=== PATIENT | female | born 1975 | race Caucasian/White ===

== ENCOUNTER → 2017-10-10 | Day surgery (SDC) | payer BC ==
[2017-10-05 10:48] VITALS: BMI 33.9
[~2017-10-10] MED LIST: Bacitracin Zinc Ointment 30 gm TUBE ONE; Betamet Acet/Betamet Na Ph 30 MG/5 ML VIAL ONE; Bupivacaine PF 0.5% 30 ML VIAL ONE; CEFAZOLIN/Water 2 GM/20 ML SYRINGE ONE; Fentanyl 100 MCG/2 ML VIAL ONE; Ketorolac Tromethamine 30 MG/ML VIAL ONE; Lidocaine 1% PF 5 ML VIAL ONE; Midazolam HCl 2 mg/2 ml Vial ONE; Ondansetron HCl/PF 4 MG/2 ML Vial ONE; PROPOFOL 200 MG/20 ML VIAL ONE
[2017-10-10 15:43] LABS: #Basophils 0.1 thou/uL (0.0-0.2); #Eosinphils 0.3 thou/uL (0.0-0.7); #Lymphocytes 3.5 thou/uL (1.20-3.40); #Monocytes 0.5 thou/uL (0.11-0.59); #Neutrophils 3.3 thou/uL (1.40-6.50); %Basophils 1.5 % (0.0-1.0); %Eosinophils 3.5 % (0.0-10.0); %Lymphocytes 45.2 % (21.0-51.0); %Monocytes 6.6 % (0.0-10.0); %Neutrophils 43.3 % (42.0-75.0); Hemoglobin 14.4 g/dL (12.0-16.0); Mean Corpuscular HGB CONC 34.3 g/dL (32.0-36.0); Mean Corpuscular Hemoglobin 31.5 pg (27.0-31.0); Mean Corpuscular Volume 91.8 fL (78.0-98.0); Mean Platelet Volume 9.8 fL (7.4-10.4); Platelet Count 222 thou/uL (130-400); RBC Distribution Width 11.4 % (11.5-14.5); Red Blood Cell (RBC) Count 4.57 mill/uL (4.20-5.40); White Blood Cell (WBC) Count 7.7 thou/uL (4.8-10.8)
[2017-10-10 15:59] LABS: Anion Gap 12 mmol/L (10-20); BUN (Urea Nitrogen) 10 mg/dL (7.0-18.7); Calc. Creatinine Clearance 145 mL/min (70-130); Calcium 9.1 mg/dL (7.8-10.44); Carbon Dioxide 22 mmol/L (22-29); Chloride 104 mmol/L (98-107); Estimated GFR-MDRD 83; Glucose 97 mg/dL (70-105); Potassium 3.5 mmol/L (3.5-5.1); Sodium 134 mmol/L (136-145)
--- NOTE | 2017-10-11 04:03 | OP ---
PREOPERATIVE DIAGNOSIS: Left ring finger A1 jed triggering. POSTOPERATIVE DIAGNOSES: 1. Left ring finger A1 jed trigger. 2. Left ring finger flexor tenosynovium, probably diabetic related tenosynovitis. PROCEDURES PERFORMED: 1. Radical flexor tenosynovectomy, left ring finger. 2. A1 jed release, left ring finger. 3. Celestone injection, A1 jed region, left ring finger. SPECIMEN SENT TO LAB: None. COMPLICATIONS: None. TOURNIQUET TIME: 11 minutes at 250 mmHg pressure. ESTIMATED BLOOD LOSS: 5 mL or less. Also injected Celestone into the tendon sheath area. DESCRIPTION OF PROCEDURE: After successful anesthesia, which was LMA, general technique by a total o f 20 mL 0.5% Marcaine, 10 given before procedure and 10 after closure. A time-out was done myriam avery and then was prepped and draped. The patient then had the tourniquet inflated after exsanguinat ion of limb to 250 mmHg pressure. A Roma type incision longitudinally was made centered on the A1 jed area was palpated with mass subcutaneously, and then carried through the skin and subcutaneous tissue for a total of 15 [facility]. We then dissected down, removed some thickened palmar fascia, identified the nerves and r etracted them from the center of the field. I then released first the A1 jed under complete direc t visualization and protection of nerves using the [place] blade and then brought scissors of tenotomy type into the wound, elevated the tendons with a tenosynovectomy from the A1, A2 jed region , all the way to proximally in the wound. We then released the tourniquet, obtained hemostasis. The A1 jed was completely released. Tenosynovectomy radical type was completed. No specimen sent to the lab. We finished attained hemostasis, closed the wound, we then put 3 mL of Celestone into the tendon area under direct visualization, and closed the wound with interrupted 4-0 nylon mattress pattern. We ga ve the remaining 10 mL of 0.5% Marcaine without epinephrine, placed bulky dressing on the wound and l eft the operating room without evidence of anesthetic or operative complication.
--- NOTE | 2017-10-12 07:37 | EKG ---
Test Reason : Blood Pressure : / mmHG Vent. Rate : 077 BPM Atrial Rate : 077 BPM P-R Int : 178 ms QRS Dur : 088 ms QT Int : 400 ms P-R-T Axes : 046 023 054 degrees QTc Int : 452 ms Normal sinus rhythm Nonspecific T wave abnormality Abnormal ECG When compared with ECG of 16-NOV-2015 19:35, Nonspecific T wave abnormality now evident in Inferior leads Confirmed by DR. Senia PLUMMER ([id number]) on 10/12/2017 7:37:32 AM Referred By: DANA Confirmed By:DR. Senia PLUMMER
== END ==
LOC: SDC 10-06 10:46
PROVIDERS: ATTEND Orthopaedic Surgery Hand Surgery
DX: M65.9 Synovitis and tenosynovitis, unspecified (principal); M65.342 Trigger finger, left ring finger; E11.9 Type 2 diabetes mellitus without complications; Z79.4 Long term (current) use of insulin; Z79.899 Other long term (current) drug therapy
CPT/HCPCS: 36415; 36416; 80048; 85025; 93005; 93010; 96372; 96374; J0702; J1885; J2250; J3010; S0020

== ENCOUNTER 2018-07-27 20:30 | Outpatient (CLI) | payer BC | END 2018-07-27 20:31 | disposition home or self-care (01) | LOC: SLEEPLAB 20:30 | PROVIDERS: ATTEND Psychiatry & Neurology Neurology | DX: G47.33 Obstructive sleep apnea (adult) (pediatric) (principal); G47.61 Periodic limb movement disorder; E11.9 Type 2 diabetes mellitus without complications | CPT/HCPCS: 95810 ==

== ENCOUNTER 2018-09-28 19:30 | Outpatient (CLI) | payer BC | END 2018-09-28 19:31 | disposition home or self-care (01) | LOC: SLEEPLAB 19:30 | PROVIDERS: ATTEND Psychiatry & Neurology Neurology | DX: G47.33 Obstructive sleep apnea (adult) (pediatric) (principal); R06.83 Snoring; E11.9 Type 2 diabetes mellitus without complications; G47.00 Insomnia, unspecified; G47.10 Hypersomnia, unspecified; R41.3 Other amnesia | CPT/HCPCS: 95811 ==

== ENCOUNTER 2019-11-22 08:00 | Outpatient (CLI) | payer BC ==
--- NOTE | 2019-11-22 09:52 | CT ---
CT Abdomen W WO Con History: Pancreatitis Comparison: CT abdomen and pelvis July 09, 2019 Findings: Lung bases are clear. No pericardial effusion. Small calcifications along the ventral aspec t pancreatic head. No pancreatic mass. The peripancreatic inflammation has resolved. No intrahepatic or extrahepatic biliary dilatation. Prior cholecystectomy. No hydronephrosis. Small subcapsular posterior cortex right interpolar angiomyolipoma versus scar No acute osseous abnormality. No dilated loops of bowel in the upper abdomen. No retroperitoneal bryant aortic adenopathy. Very small 6 to 7 mm nodule lateral limb right adrenal gland versus focal hypertrophy with attenuatio n less than 5. No splenic artery aneurysm. No gastroduodenal artery aneurysm. No pseudocyst. Small hypodensity of the spleen not likely clinically significant measuring 5-6 mm. Impression: Resolved pancreatitis. No pancreatic mass.
== END 2019-11-22 08:01 | disposition home or self-care (01) ==
LOC: SCSCT 08:00
PROVIDERS: ATTEND Internal Medicine Endocrinology, Diabetes & Metabolism
DX: K86.9 Disease of pancreas, unspecified (principal)
CPT/HCPCS: 74170